=== PATIENT | female | born 1970 | race Caucasian/White ===

== ENCOUNTER 2018-09-19 09:49 | Day surgery (SDC) | payer BC ==
[2018-09-07 12:11] VITALS: BMI 33.6
[2018-09-19] MEDS ORDERED: DEXMEDETOMIDINE HCL 200 MCG/2 ML IVPB ONE (10:50)
[2018-09-19] MEDS ORDERED: DEXAMETHASONE SOD PHOSPHATE/PF 10 MG/ML SDV ONE (10:50)
[2018-09-19] MEDS ORDERED: MIDAZOLAM HCL 2 MG/2 ML SINGLE DOSE VIAL ONE (10:51)
[2018-09-19] MEDS ORDERED: ROPIVACAINE HCL 0.5% 30ML VIAL ONE (10:51)
[2018-09-19] MEDS ORDERED: PROPOFOL 20 ML ONE ×4 (11:23)
[2018-09-19] MEDS ORDERED: ONDANSETRON 4 MG/2 ML VIAL ONE (11:29)
[2018-09-19] MEDS ORDERED: KETOROLAC TROMETHAMINE 30 MG/1 ML VIAL ONE (11:29)
[2018-09-19] MEDS ORDERED: ceFAZolin SODIUM 1 GM VIAL ONE (11:29)
[2018-09-19] MEDS ORDERED: DEXAMETHASONE SOD PHOSPHATE 4 MG/1 ML VIAL ONE (11:29)
[2018-09-19] MEDS ORDERED: ACETAMINOPHEN 325 MG TABLET (FP) ONE (12:47)
[2018-09-19] MEDS ORDERED: oxyCODONE HCL 5 MG TABLET PO PRN ×2 (12:50)
[2018-09-19] MEDS ORDERED: ACETAMINOPHEN 325 MG TABLET (FP) PO PRN (12:50)
[2018-09-19] MEDS ORDERED: ONDANSETRON 4 MG/2 ML VIAL IVPUSH PRN (12:50)
[2018-09-19] MEDS ORDERED: PROMETHAZINE HCL 25 MG/1 ML VIAL IVPB PRN (12:50)
[2018-09-19 14:42] VITALS: BP 124/74; PULSE 71; TEMP 98
--- NOTE | 2018-09-20 08:47 | OP ---
DATE OF OPERATION: 09/19/2018 PREOPERATIVE DIAGNOSES: 1. Right basal joint arthritis. 2. Right carpal tunnel syndrome. 3. Right de Quervain tenosynovitis. POSTOPERATIVE DIAGNOSES: 1. Right basal joint arthritis. 2. Right carpal tunnel syndrome. 3. Right de Quervain tenosynovitis. OPERATIVE PROCEDURE: 1. Right basal joint arthroplasty. 2. Right carpal tunnel release. 3. Right de Quervain release. SURGEON: Raul Candelaria MD AMMONIA STILL OPERATOR: KELSEY Parnell ANESTHESIA: Regional. COMPLICATIONS: None. ESTIMATED BLOOD LOSS: Minimal. INDICATION FOR PROCEDURE: The patient is a 48-year-old female with the above finding indicated for operative treatment. Risks, benefits, and alternatives were discussed with the patient at length. Proper informed consent was obtained. DESCRIPTION OF PROCEDURE: After proper identification of the patient, correct operative site, patient was brought to the operating room and placed supine on the operating table with all prominences well padded. Sedation was given by the anesthesiologist. Regional anesthesia was given. Right upper extremity was prepped and draped in the usual sterile fashion. Intravenous antibiotics given. Timeout procedure was performed. Right upper extremity was exsanguinated with an Esmarch bandage. Tourniquet was inflated to 250 mmHg. Longitudinal incision was made in the proximal aspect of the palm. Incision taken sharply through skin with blunt and sharp dissection through subcutaneous tissues. Palmar fascia was divided longitudinally. Transverse carpal ligament was divided longitudinally, along with the distal 4 cm of the antecubital fascia under direct visualization with loop magnification. This provided complete release of the median nerve at the wrist. Wound was irrigated and repaired with 5-0 nylon suture. Second incision was made transversely over the first dorsal compartment. Incision was taken sharply through skin with blunt and sharp dissection subcutaneous tissues, carefully protecting the radial sensory nerve branches. First dorsal compartment was identified and found to be thickened and was divided along its dorsal border. Multiple tendon slips were present, but there was no subcompartment. There was no subluxation of the tendons. Wound was irrigated and repaired a 4-0 Monocryl suture. Third incision was made as a Roca incision over the basal joint. Incision was taken sharply through the skin with blunt and sharp dissection subcutaneous tissues. Neurovascular structures were carefully protected. The thenar eminence was retracted volarly, and the joint capsule to the CMC joint was opened. Moderate spur formation and severe synovitis were noted. Significant arthrosis of the basal joint was found. The soft tissue was elevated in a subperiosteal fashion off of the trapezium, and the trapezium was excised in a piecemeal fashion. Flexor carpi radialis tendon was left intact. Once the trapezium was removed, the thumb metacarpal was distracted and a suspensionplasty sling was performed using the Arthrex internal brace technique. This was done by placing a SwiveLock anchor in the base of the index metacarpal and then passing FiberTape across the base of the thumb metacarpal and securing it at the base of the thumb metacarpal with a second SwiveLock anchor. This provided excellent stability of the arthroplasty with no subsidence, and full motion was achieved. The capsule was repaired with 3-0 Vicryl suture. Skin was repaired in layers using 4-0 Vicryl and 4-0 Monocryl. Steri-Strips and a sterile dressings were applied. Splint was placed. Patient was reversed from anesthesia and brought to the recovery room in stable condition. She tolerated the procedure well. Ernst Sales, the assisted living assistant, was integral throughout the procedure. Procedure could not have been performed without a skilled operative assisted living assistant. Melisa PIMENTEL/[id number]
== END 2018-09-19 14:00 | disposition home or self-care (01) ==
LOC: FASU 09:49
PROVIDERS: ATTEND Orthopaedic Surgery Hand Surgery
PROC: 0LN50ZZ Release Right Lower Arm and Wrist Tendon, Open Approach (ICD-10-PCS; 2018-09-19)
PROC: 0RQU0ZZ Repair Right Metacarpophalangeal Joint, Open Approach (ICD-10-PCS; 2018-09-19)
PROC: 01N50ZZ Release Median Nerve, Open Approach (ICD-10-PCS; principal; 2018-09-19 11:30)
DX: G56.01 Carpal tunnel syndrome, right upper limb (principal); M65.4 Radial styloid tenosynovitis [de Quervain]; M13.841 Other specified arthritis, right hand
CPT/HCPCS: 94760